=== PATIENT | male | born 1975 | race Caucasian/White ===

== ENCOUNTER 2016-11-14 14:56 | Emergency (ER) | payer OTHER ==
[2016-11-14 14:57] VITALS: BMI 32.1
[2016-11-14 15:29] VITALS: RESP 18; O2SAT 98
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
[2016-11-14 17:28] VITALS: BP 139/77; PULSE 81; TEMP 98.1
== END 2016-11-14 17:27 | disposition home or self-care (01) ==
LOC: C.ER 14:56
DX: S30.0XXA Contusion of lower back and pelvis, initial encounter (principal); Y00.XXXA Assault by blunt object, initial encounter; Y92.89 Other specified places as the place of occurrence of the external cause